=== PATIENT | male | born 1975 | race Caucasian/White ===

== ENCOUNTER 2016-03-18 19:32 | Emergency (ER) | payer MEDICAID ==
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
[2016-03-18 20:17] VITALS: BP 111/82; PULSE 78; RESP 16; TEMP 98.4; O2SAT 95
== END 2016-03-18 20:22 | disposition home or self-care (01) ==
LOC: EDUNIT#
PROC: 0HQ0XZZ Repair Scalp Skin, External Approach (ICD-10-PCS; principal; 2016-03-18)
DX: S01.01XA Laceration without foreign body of scalp, initial encounter (principal); F17.200 Nicotine dependence, unspecified, uncomplicated; W22.8XXA Striking against or struck by other objects, initial encounter

== ENCOUNTER 2016-03-29 10:11 | Emergency (ER) | payer MEDICAID ==
[~2016-03-29 10:11] MED LIST: ALBUTEROL 60 PUFFS/8 GM MDI IH SCH; AZITHROMYCIN 250 MG TAB PO SCH
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
[2016-03-29 12:24] VITALS: BP 128/78; PULSE 67; RESP 18; TEMP 97.7; O2SAT 95
[2016-03-30] MEDS ORDERED: AZITHROMYCIN 250 MG TAB PO SCH (09:00)
== END 2016-03-29 12:21 | disposition home or self-care (01) ==
DX: J20.9 Acute bronchitis, unspecified (principal); F17.200 Nicotine dependence, unspecified, uncomplicated

== ENCOUNTER 2017-05-17 21:53 | Emergency (ER) | payer MEDICAID, OTHER ==
--- NOTE | 2017-05-17 21:56 | EDPHY ---
H & P Time Seen by Provider: 05/17/17 21:55 HPI/ROS: HPI: This is a 42-year-old male who presents with Chief Complaint: Right wrist infection Location: Right wrist Quality: Infection Duration: 2 weeks Signs and Symptoms: No bleeding, no radiation, no numbness, no weakness, no tingling, no incontinence, no decreased range of motion, + swelling, +pain, no fever Timing: Not improving Severity: Moderate Context: Patient is right-hand dominant, former IV drug user, presents with police from detention with request for evaluation of his right wrist/lower arm abnormality that has not improved with 2 weeks of Bactrim. Detention nurse is concerned that patient may have compartment syndrome. Complains of right hand being cooler to touch than his left hand. Denies any trauma/injury. Denies fever. Mild redness noted. Denies LOC/head injury/neck pain/dizziness/nausea/ vomiting/amnesia. Patient hands are hard and cracked. Hands have no redness or swelling as compared to the left hand. Modifying Factors: Bactrim Comment: ROS: see HPI Constitutional: No fever, no chills, no weight loss Eyes: No blurred vision Respiratory: No shortness of breath, no cough Cardiovascular: No chest pain Gastrointestinal: No nausea, no vomiting no diarrhea Genitourinary: No dysuria Extremities: No myalgias Neurologic: No weakness, no numbness Skin: No rashes Hematologic: No bruising, no bleeding MEDICAL/SURGICAL/SOCIAL HISTORY: Medical history: Polysubstance abuse, bipolar disorder Surgical history: Ortho Social history: Homeless, currently incarcerated. CONSTITUTIONAL: Well-developed, well-nourished, adult middle-aged male, awake and alert, no obvious distress HEENT: Atraumatic and normocephalic. NECK: supple, no midline tenderness, flexion 45 degrees, extension 45 degrees, right and left lateral flexion 45 degrees. No meningismus. Cardiovascular: Normal S1/S2, regular rate, regular rhythm, without murmur rub or gallop. PULMONARY/CHEST: Symmetrical and nontender. no crepitus. Clear to auscultation bilaterally. Good air movement. No accessory muscle usage. ABDOMEN: Soft, nondistended, nontender, no ecchymosis. PELVIC: no pain with rocking; bilateral hips flexion 125 degrees, extension 30 degrees, with no pain internal rotation and no pain external rotation. BACK: No midline tenderness, no paraspinous spasm, deep tendon reflexes 2/2, no pain with straight leg raise, No foot drop. Achilles reflexes are equal bilaterally. Able to walk on heels and toes without difficulty. EXTREMITIES: 2/2 pulses, strength 5/5, right WRIST: Extension to 70, flexion to 80, radial deviation to 20 degree, ulnar deviation to 30, no scaphoid tenderness, no tenderness over ulnar styloid, no tenderness over radial styloid , no pain with Heather test, no pain with Phalen test, no pain with Tinel test mildly erythematous and warm right wrist and forearm; no streaking; mild swelling; right hand is slightly cool to touch compared to left hand. Strong radial pulses noted. DIP/PIP/MCP flexion/extension intact with good light touch sensation. no deformities, no clubbing, no cyanosis or edema. NEUROLOGICAL: no focal neuro deficits. GCS 15. Light touch sensation intact. SKIN: Warm and dry, no erythema. no rash. Good capillary refill. Source: Patient Exam Limitations: No limitations - Medical/Surgical History Hx Asthma: No Hx Chronic Respiratory Disease: No Hx Diabetes: No Hx Cardiac Disease: No Hx Renal Disease: No Hx Cirrhosis: No Hx Alcoholism: No Hx HIV/AIDS: No Hx Splenectomy or Spleen Trauma: No Other PMH: ortho surgeries. - Social History Smoking Status: Current every day smoker Constitutional: Initial Vital Signs Temperature (C) 36.7 C 05/17/17 21:57 Heart Rate 57 L 05/17/17 21:57 Respiratory Rate 18 05/17/17 21:57 Blood Pressure 170/109 H 05/17/17 21:57 O2 Sat (%) 97 05/17/17 21:57 O2 Delivery Mode Room Air Allergies/Adverse Reactions: No Known Allergies Allergy (Unverified 05/17/17 21:56) Home Medications: Medication Instructions Recorded Famotidine [Pepcid 20 MG (*)] 20 mg PO BID #10 tab 02/05/16 Gabapentin 02/05/16 Ondansetron Odt [Zofran Odt 4 mg 4 mg PO Q4PRN PRN #7 tab 02/05/16 (*)] Seroquel 02/05/16 Wellbutrin Sr 02/05/16 Albuterol [Proventil Inhaler HFA 1 - 2 puffs IH Q4PRN PRN #1 mdi 03/29/16 (*)] Azithromycin [Zithromax tab 250 mg] 250 mg PO DAILY #6 tab 03/29/16 Medical Decision Making - Diagnostics Imaging Results: Imaging Impressions Extremity Venous Study 05/17/17 22:03 Impression: No sonographic evidence of venous thrombosis in the right upper extremity. Dr. Sanchez discussed these findings by secure text message with PAC Arielalan Ray at 2056 hours on 05/17/2017. Wrist X-Ray 05/17/17 22:03 Impression: No acute osseous abnormalities. ED Course/Re-evaluation: Labs, right upper extremity ultrasound, right wrist x-ray ordered Vital signs stable upon arrival. 2300: Called by radiologist, Dr. Gladys nicole, who advised that right upper extremity ultrasound is negative for deep venous thrombosis. X-ray my read shows no signs of fracture/dislocation 2320: labs reviewed; grossly unremarkable including no leukocytosis/elevated ESR No signs of neurovascular compromise/tenting of skin/compartment syndrome/ extremities and joints examined above and below area of concern and are neurovascularly intact/gouty arthropathy. Suspect tendonitis; placed in Velcro wrist splint; RICE; orthopedics follow-up This patient was seen under the supervision of my secondary supervising physician. I evaluated care for this patient independently. Differential Diagnosis: Differential diagnosis includes but is not limited to compartment syndrome, tenosynovitis, cellulitis, wrist fracture, scaphoid fracture, nerve injury, vascular injury, DVT. - Data Points Laboratory Results: Laboratory Results 05/17/17 23:00 05/17/17 23:00 05/17/17 05/17/17 05/17/17 23:00 23:00 23:00 WBC 8.76 10^3/uL 10^3/uL (3.80-9.50) RBC 4.64 10^6/uL 10^6/uL (4.40-6.38) Hgb 15.5 g/dL g/dL (13.7-17.5) Hct 45.4 % % (40.0-51.0) MCV 97.8 fL fL (81.5-99.8) MCH 33.4 pg pg (27.9-34.1) MCHC 34.1 g/dL g/dL (32.4-36.7) RDW 12.7 % % (11.5-15.2) Plt Count 334 10^3/uL 10^3/uL (150-400) MPV 10.1 fL fL (8.7-11.7) Neut % (Auto) 54.0 % % (39.3-74.2) Lymph % (Auto) 32.0 % % (15.0-45.0) [place] % (Auto) 8.0 % % (4.5-13.0) Eos % (Auto) 4.7 % % (0.6-7.6) Baso % (Auto) 1.1 % % (0.3-1.7) Nucleat RBC Rel Count 0.0 % % (0.0-0.2) Absolute Neuts (auto) 4.73 10^3/uL 10^3/uL (1.70-6.50) Absolute Lymphs (auto) 2.80 10^3/uL 10^3/uL (1.00-3.00) Absolute Monos (auto) 0.70 10^3/uL 10^3/uL (0.30-0.80) Absolute Eos (auto) 0.41 10^3/uL H 10^3/uL (0.03-0.40) Absolute Basos (auto) 0.10 10^3/uL 10^3/uL (0.02-0.10) Absolute Nucleated RBC 0.00 10^3/uL 10^3/uL (0-0.01) Immature Gran % 0.2 % % (0.0-1.1) Immature Gran # 0.02 10^3/uL 10^3/uL (0.00-0.10) ESR 5 MM/HR MM/HR (0-15) VBG Lactic Acid 0.9 mmol/L mmol/L (0.7-2.1) Sodium 139 mEq/L mEq/L (135-145) Potassium 4.5 mEq/L mEq/L (3.5-5.2) Chloride 100 mEq/L mEq/L (97-110) Carbon Dioxide 28 mEq/l mEq/l (22-31) Anion Gap 11 mEq/L mEq/L (8-16) BUN 22 mg/dL mg/dL (7-23) Creatinine 0.9 mg/dL mg/dL (0.7-1.3) Estimated GFR > 60 Glucose 70 mg/dL mg/dL (70-100) Calcium 9.5 mg/dL mg/dL (8.5-10.4) Departure - Departure Disposition: Home, Routine, Self-Care Clinical Impression: Tendinitis of right forearm Condition: Good Instructions: Tendinitis (ED) Additional Instructions: Right upper extremity ultrasound shows no signs of deep venous thrombosis. Right forearm and wrist x-ray showed no signs of fracture/dislocation. Laboratory studies are unremarkable. Wear the velcro wrist splint continuously until pain free or until seen by orthopedics. Take Tylenol 650 mg every 4 hours and/or Ibuprofen 600 mg every 8 hours with food as needed for pain. Apply ice for 30 minutes at a time; 2-3 times per day for the next 1-2 days. Follow-up with Orthopedics if symptoms persist greater than 1-2 weeks for further evaluation. Medically Cleared See [facility] for follow-up instructions and prescriptions. Referrals: Erasmo Butler MD [Medical Doctor] - As per Instructions
[2017-05-17 23:09] LABS: PLATELET COUNT 334 10^3/uL (150-400)
[2017-05-17 23:44] VITALS: BP 151/91
== END 2017-05-17 23:46 | disposition home or self-care (01) ==
LOC: EEVIPCON 21:53
DX: M77.9 Enthesopathy, unspecified (principal); F17.200 Nicotine dependence, unspecified, uncomplicated
CPT/HCPCS: L3807

== ENCOUNTER 2018-03-22 18:57 | Emergency (ER) | payer MEDICAID, OTHER ==
[2018-03-22] MEDS ORDERED: CHLORDIAZEPOXIDE 25MG PREPK#6 BTL TAKEHOME ONE (19:13)
--- NOTE | 2018-03-22 19:13 | EDPHY ---
H & P Stated Complaint: Swelling in hands, "bone hurts" Time Seen by Provider: 03/22/18 19:09 - Personal History Current Tetanus Diphtheria and Acellular Pertussis (TDAP): No - Medical/Surgical History Hx Asthma: No Hx Chronic Respiratory Disease: No Hx Diabetes: No Hx Cardiac Disease: No Hx Renal Disease: No Hx Cirrhosis: No Hx Alcoholism: Yes Hx HIV/AIDS: No Hx Splenectomy or Spleen Trauma: No Other PMH: ortho surgeries, Hep C, ETOH abuse - Social History Smoking Status: Current every day smoker Constitutional: Initial Vital Signs Temperature (C) 36.5 C 03/22/18 19:03 Heart Rate 118 H 03/22/18 19:03 Respiratory Rate 19 03/22/18 19:03 Blood Pressure 133/85 H 03/22/18 19:03 O2 Sat (%) 92 03/22/18 19:03 O2 Delivery Mode Room Air Allergies/Adverse Reactions: No Known Allergies Allergy (Unverified 03/22/18 19:04) Home Medications: Medication Instructions Recorded Famotidine [Pepcid 20 MG (*)] 20 mg PO BID #10 tab 02/05/16 Gabapentin 02/05/16 Ondansetron Odt [Zofran Odt 4 mg 4 mg PO Q4PRN PRN #7 tab 02/05/16 (*)] Seroquel 02/05/16 Wellbutrin Sr 02/05/16 Albuterol [Proventil Inhaler HFA 1 - 2 puffs IH Q4PRN PRN #1 mdi 03/29/16 (*)] Azithromycin [Zithromax tab 250 mg] 250 mg PO DAILY #6 tab 03/29/16 Medical Decision Making - Diagnostics Imaging Results: Imaging Impressions Hand X-Ray 03/22/18 19:22 Impression: Soft tissue swelling with no acute osseous abnormality identified. Imaging: I viewed and interpreted images myself ED Course/Re-evaluation: CHIEF COMPLAINT: Wants to go to [facility], bilateral hand swelling HISTORY OF PRESENT ILLNESS: The patient is a homeless 42 y/o male with a history of alcohol abuse requesting Librium prescription and transfer to the [facility]. He also complains of bilateral hand swelling after cutting his left index finger on barbed wire. Pain is worse when making a fist. He denies weakness, paresthesias, fever, or other acute complaints. REVIEW OF SYSTEMS: A comprehensive 10 system review of systems is otherwise negative aside from elements mentioned in the history of present illness and medical decision making. PHYSICAL EXAM: HR, BP, O2 Sat, RR. Temp noted General Appearance: Alert, well hydrated, appropriate, and non-toxic appearing. Head: Atraumatic without scalp tenderness or obvious injury Eyes: Pupils equal, round, reactive to light and accommodation, EOMI, no trauma , no injection. Nose: Atraumatic, no rhinorrhea, clear. Throat: Mucus membranes moist. Neck: Supple, nontender, no lymphadenopathy. Respiratory: No retractions, no distress, no wheezes, and no accessory muscle use. Lungs are clear to auscultation bilaterally. Cardiovascular: Regular rate and rhythm, no murmurs, rubs, or gallops. Good capillary refill all extremities. Gastrointestinal: Abdomen is soft, nontender, non-distended, no masses, no rebound, no guarding, no peritoneal signs. Musculoskeletal: Normal active ROM of all extremities, bilateral hand swelling , small scab on left index finger, no Kanavel signs, otherwise atraumatic. Neurological: Alert, appropriate, and interactive. The patient has non-focal cranial nerves, motor, sensory, and cerebellar exam. Skin: No rashes, good turgor, no nodules on palpation. Past medical history: Alcoholism, hepatitis C Past surgical history: Ortho surgeries Family history: Noncontributory Social history: Homeless, alcohol abuse, daily smoker. DIAGNOSTICS/PROCEDURES/CRITICAL CARE TIME: Left hand x-ray: no fracture or foreign body. DIFFERENTIAL DIAGNOSIS: The differential diagnosis for the patient's symptoms included but was not limited to cellulitis, foreign body, contusion, cold injury , peripheral edema. MEDICAL DECISION MAKING: This is a homeless 42 y/o male who presents requesting transfer to the [facility] and evaluation of hand swelling. He has a small scab on his left index finger and bilateral hand swelling. No Kanavel signs and he does not appear systemically ill. Ruled out radio-opaque foreign body with left hand x-ray. Patient will be discharged to [facility] with Librium script. 100mg PO Doxycycline administered for possible cellulitis and script for doxy provided at discharge. - Data Points Medications Given: Discontinued Medications Doxycycline Hyclate (Doxycycline Hyclate) 100 mg PO EDNOW ONE PRN Reason: Protocol Stop: 03/22/18 19:28 Last Admin: 03/22/18 19:36 Dose: 100 mg Departure - Departure Disposition: Home, Routine, Self-Care Clinical Impression: Cellulitis Qualifiers: Site of cellulitis: extremity Site of cellulitis of extremity: finger Laterality: left Qualified Code(s): L03.012 - Cellulitis of left finger Alcohol intoxication Qualifiers: Complication of substance-induced condition: uncomplicated Qualified Code(s): F10.920 - Alcohol use, unspecified with intoxication, uncomplicated Condition: Good Instructions: Cellulitis (ED), Abuse of Alcohol (ED) Additional Instructions: 1. Take doxycycline as prescribed. Be sure to complete the entire prescription even if you feel better. 2. Go directly to the [facility] for detox. Take Librium as prescribed for detox symptoms. 3. Follow up with primary care provider in the next 2-3 days for reevaluation of your hand. 4. Return for worsening of condition. Referrals: [facility],. [Clinic] - As per Instructions Report Scribed for: Tom Trevizo Report Scribed by: Amanda Aguero Date of Report: 03/22/18 Time of Report: 19:19
[2018-03-22] MEDS ORDERED: DOXYCYCLINE HYCLATE 100 MG CAP/TAB PO ONE (19:27)
[2018-03-22] MEDS ORDERED: DOXYCYCLINE 100 MG PREPACK#2 BTL TAKEHOME ONE (19:27)
[2018-03-22 20:26] VITALS: BP 131/87
== END 2018-03-22 20:26 | disposition home or self-care (01) ==
DX: L03.012 Cellulitis of left finger (principal); M79.89 Other specified soft tissue disorders; F10.10 Alcohol abuse, uncomplicated; F17.200 Nicotine dependence, unspecified, uncomplicated; Z59.0 Homelessness

== ENCOUNTER 2018-03-28 21:31 | Emergency (ER) | payer MEDICAID ==
--- NOTE | 2018-03-28 22:20 | EDPHY ---
H & P Stated Complaint: Chest congestion, L side chest pain, Time Seen by Provider: 03/28/18 22:00 HPI/ROS: HPI The patient presents brought in by ambulance from the street for chest pain which he describes as left-sided, aching and dull, the pain has been constant for the last 1 week. It is associated with shortness of breath and sensation of claustrophobia. He also has a chronic dry cough. He does not recall any alleviating or exacerbating factors. He has not had this pain before. He has left hand infection which is being treated since in the ED visit from March 22 with doxycycline. He has a blister which has opened up on his finger. The pain continues. He has not had fevers. REVIEW OF SYSTEMS 10 systems were reviewed and negative with the exception of the elements mentioned in the history of present illness. PMHx: Hepatitis-C Soc Hx: Homeless, daily alcohol use, smokes 1 pack of cigarettes per day, occasional meth use, has been sleeping on the street PHYSICAL General Appearance: Disheveled, no acute distress Eyes: Pupils equal and round no pallor or injection ENT, Mouth: Mucous membranes moist Respiratory: There are no retractions, lungs are clear to auscultation Cardiovascular: Regular rate and rhythm Gastrointestinal: Abdomen is soft and non-tender, no masses, bowel sounds normal Neurological: A&O, moves all extremities Skin: Warm and dry, no rashes Musculoskeletal: Neck is supple non tender Extremities: Left index finger with 1 cm ruptured bullae which is slightly erythematous, no areas of fluctuance or tenderness, symmetrical, full range of motion Psychiatric: Patient is oriented X 3, there is no agitation Source: Patient, EMS, Old records Exam Limitations: No limitations - Personal History Current Tetanus Diphtheria and Acellular Pertussis (TDAP): Yes - Medical/Surgical History Hx Asthma: No Hx Chronic Respiratory Disease: No Hx Diabetes: No Hx Cardiac Disease: No Hx Renal Disease: No Hx Cirrhosis: No Hx Alcoholism: Yes Hx HIV/AIDS: No Hx Splenectomy or Spleen Trauma: No Other PMH: ortho surgeries, Hep C, ETOH abuse - Social History Smoking Status: Current every day smoker Constitutional: Initial Vital Signs Temperature (C) 36.5 C 03/28/18 21:35 Heart Rate 99 03/28/18 21:35 Respiratory Rate 18 03/28/18 21:35 Blood Pressure 116/81 H 03/28/18 21:35 O2 Sat (%) 93 03/28/18 21:35 O2 Delivery Mode Nasal Cannula O2 (L/minute) 2 Allergies/Adverse Reactions: No Known Allergies Allergy (Unverified 03/28/18 21:37) Home Medications: Medication Instructions Recorded Famotidine [Pepcid 20 MG (*)] 20 mg PO BID #10 tab 02/05/16 Gabapentin 02/05/16 Ondansetron Odt [Zofran Odt 4 mg 4 mg PO Q4PRN PRN #7 tab 02/05/16 (*)] Seroquel 02/05/16 Wellbutrin Sr 02/05/16 Albuterol [Proventil Inhaler HFA 1 - 2 puffs IH Q4PRN PRN #1 mdi 03/29/16 (*)] Azithromycin [Zithromax tab 250 mg] 250 mg PO DAILY #6 tab 03/29/16 Doxycycline Hyclate 100 mg PO BID #20 capsule 03/22/18 Medical Decision Making - Diagnostics EKG Interpretation: EKG: Complete interpretation has been separately recorded in the [facility] archive. Summary impression: Normal sinus rhythm, no ST segment change Imaging Results: Imaging Impressions Chest X-Ray 03/28/18 22:15 Impression: No acute abnormality. Imaging: I viewed and interpreted images myself Differential Diagnosis: This is a 42-year-old homeless male with hepatitis-C, recent finger infection on doxycycline who now presents brought in by ambulance from the street on this cold night with chest pain. This is associated with shortness of breath. Here , patient looks quite well, is mildly tachycardic though this could be related to alcohol withdrawal as he is a daily drinker. He is disheveled though has a nonfocal physical exam. Differential diagnosis includes ACS, alcoholic gastritis, bronchitis, pleurisy. In the emergency department, patient was placed on phototypesetting equipment monitor. He was given a dose of Librium for alcohol withdrawal as potential cause of his mild tachycardia. Heart rate normalized. Chest x-ray was unremarkable. EKG was normal. Basic labs revealed a mild transaminitis which I attribute either to his hepatitis C or chronic alcohol abuse. Blood alcohol level was elevated at 260. Patient fell asleep in the emergency department and rested comfortably for about 2 hr. I discussed that we did not uncover the cause of his chest pain here. However with constant chest pain for 1 week and negative troponin, I am not concerned for ACS. He will be discharged home. I have encouraged him to continue his antibiotics for his finger infection which does not appear to be flexor tenosynovitis, significance cellulitis or abscess. - Data Points Laboratory Results: Laboratory Results 03/28/18 22:55 03/28/18 22:55 03/28/18 03/28/18 03/28/18 23:01 22:55 22:55 WBC 8.08 10^3/uL 10^3/uL (3.80-9.50) RBC 4.35 10^6/uL L 10^6/uL (4.40-6.38) Hgb 14.8 g/dL g/dL (13.7-17.5) Hct 42.4 % % (40.0-51.0) MCV 97.5 fL fL (81.5-99.8) MCH 34.0 pg pg (27.9-34.1) MCHC 34.9 g/dL g/dL (32.4-36.7) RDW 13.3 % % (11.5-15.2) Plt Count 260 10^3/uL 10^3/uL (150-400) MPV 9.9 fL fL (8.7-11.7) Neut % (Auto) 53.8 % % (39.3-74.2) Lymph % (Auto) 29.3 % % (15.0-45.0) [place] % (Auto) 10.0 % % (4.5-13.0) Eos % (Auto) 5.8 % % (0.6-7.6) Baso % (Auto) 1.0 % % (0.3-1.7) Nucleat RBC Rel Count 0.0 % % (0.0-0.2) Absolute Neuts (auto) 4.34 10^3/uL 10^3/uL (1.70-6.50) Absolute Lymphs (auto) 2.37 10^3/uL 10^3/uL (1.00-3.00) Absolute Monos (auto) 0.81 10^3/uL H 10^3/uL (0.30-0.80) Absolute Eos (auto) 0.47 10^3/uL H 10^3/uL (0.03-0.40) Absolute Basos (auto) 0.08 10^3/uL 10^3/uL (0.02-0.10) Absolute Nucleated RBC 0.00 10^3/uL 10^3/uL (0-0.01) Immature Gran % 0.1 % % (0.0-1.1) Immature Gran # 0.01 10^3/uL 10^3/uL (0.00-0.10) Sodium 141 mEq/L mEq/L (135-145) Potassium 4.1 mEq/L mEq/L (3.5-5.2) Chloride 105 mEq/L mEq/L (97-110) Carbon Dioxide 27 mEq/l mEq/l (22-31) Anion Gap 9 mEq/L mEq/L (6-14) BUN 21 mg/dL mg/dL (7-23) Creatinine 0.9 mg/dL mg/dL (0.7-1.3) Estimated GFR > 60 Glucose 105 mg/dL H mg/dL (70-100) Calcium 9.0 mg/dL mg/dL (8.5-10.4) Total Bilirubin 0.4 mg/dL mg/dL (0.1-1.4) AST 100 IU/L H IU/L (17-59) ALT 77 IU/L H IU/L (21-72) Alkaline Phosphatase 98 IU/L IU/L (38-126) POC Troponin I 0.00 ng/mL ng/mL (0.00-0.08) Total Protein 7.2 g/dL g/dL (6.3-8.2) Albumin 4.4 g/dL g/dL (3.5-5.0) Ethyl Alcohol 260 mg/dL H mg/dL (0-10) Medications Given: Discontinued Medications Chlordiazepoxide HCl (Librium) 25 mg PO EDNOW ONE Stop: 03/28/18 22:25 Last Admin: 03/28/18 22:32 Dose: 25 mg Point of Care Test Results: Chemistry 03/28/18 23:01 POC Troponin I 0.00 ng/mL ng/mL (0.00-0.08) Departure - Departure Disposition: Home, Routine, Self-Care Clinical Impression: Homelessness Chest pain Qualifiers: Chest pain type: unspecified Qualified Code(s): R07.9 - Chest pain, unspecified Alcohol intoxication Qualifiers: Complication of substance-induced condition: with delirium Qualified Code(s): F10.921 - Alcohol use, unspecified with intoxication delirium Condition: Good Instructions: Chest Pain (ED), Alcohol Intoxication (ED) Additional Instructions: Please continue to take your antibiotic until it is finished. You can follow up at [facility] in the next few days for recheck. Return to the ER only if your worse in any way. Referrals: [facility],. [Clinic] - As per Instructions [facility],. [Clinic] - As per Instructions
[2018-03-28] MEDS ORDERED: chlordiazePOXIDE 25 MG CAP PO ONE (22:24)
[2018-03-28 23:07] LABS: PLATELET COUNT 260 10^3/uL (150-400)
[2018-03-29 00:15] VITALS: BP 108/78
--- NOTE | 2018-03-29 06:07 | CPEKG ---
Test Reason : OPEN Blood Pressure : / mmHG Vent. Rate : 101 BPM Atrial Rate : 101 BPM P-R Int : 131 ms QRS Dur : 092 ms QT Int : 364 ms P-R-T Axes : 061 012 054 degrees QTc Int : 472 ms Sinus tachycardia Probable left atrial enlargement Confirmed by Mariposa Esquivel ([id number]) on 03/29/2018 6:07:13 AM Referred By: Mariposa Esquivel Confirmed By:Mariposa Esquivel
== END 2018-03-29 00:15 | disposition home or self-care (01) ==
LOC: EDUNIT#
DX: R07.9 Chest pain, unspecified (principal); B19.20 Unspecified viral hepatitis C without hepatic coma; F10.129 Alcohol abuse with intoxication, unspecified; Y90.8 Blood alcohol level of 240 mg/100 ml or more; F17.200 Nicotine dependence, unspecified, uncomplicated; Z59.0 Homelessness
CPT/HCPCS: 84484-ER; G0480

== ENCOUNTER 2018-04-13 11:42 | Emergency (ER) | payer MEDICAID ==
[2018-04-13] MEDS ORDERED: CHLORDIAZEPOXIDE 25MG PREPK#6 BTL TAKEHOME ONE (11:48)
[2018-04-13] MEDS ORDERED: CEPHALEXIN 500 MG CAP PO ONE (11:48)
[2018-04-13 11:49] VITALS: BP 132/80
--- NOTE | 2018-04-13 11:55 | EDPHY ---
H & P Stated Complaint: l index finger infection Time Seen by Provider: 04/13/18 11:49 HPI/ROS: HPI: This is a 42-year-old male who presents with Chief Complaint: Left finger infection Location: Left finger Quality: Infection Duration: Several weeks Signs and Symptoms: No bleeding, no radiation, no numbness, no weakness, no tingling, no incontinence, no decreased range of motion, no swelling, + pain, no fever Timing: Chronic Severity: Mild Context: Patient is homeless, arrives via EMS, with complaints of left index finger infection. He admits to not taking the doxycycline as prescribed. He was seen in this emergency room on 03/28/2018 with similar complaints. He reports that he wants to go [facility] with Librium in order to "be able to take my medication." Denies fever, radiation, weakness, decreased range of motion. Patient complains that doxycycline makes him nauseous and he cannot take it while use drinking. He reports that he drinks vodka daily. On 03/28/2018 chart review shows that chest x-ray shows no acute abnormality, EKG showed normal sinus rhythm with no ST segment changes. Denies shortness of breath, chest pain, abdominal pain, nausea, vomiting to me. Modifying Factors: None Comment: ROS: A comprehensive 10 system review of systems is otherwise negative aside from elements mentioned in the history of present illness. MEDICAL/SURGICAL/SOCIAL HISTORY: Medical history: Alcoholism, hepatitis-C Surgical history: Denies Social history: Homeless. CONSTITUTIONAL: Intoxicated, middle-aged white male, cooperative, awake and alert, no obvious distress HEENT: Atraumatic and normocephalic. NECK: supple, no midline tenderness Cardiovascular: Normal S1/S2, regular rate, regular rhythm, without murmur rub or gallop. PULMONARY/CHEST: Symmetrical and nontender.Clear to auscultation bilaterally. Good air movement. No accessory muscle usage. ABDOMEN: Soft, nondistended, nontender. EXTREMITIES: 2/2 pulses, strength 5/5, left index finger shows 2 mm round dried area distal to the PIP joint; no erythema/fluctuance/warmth. Negative Kanavel sign. DIP/PIP/MCP flexion/extension intact with good light touch sensation. no deformities, no clubbing, no cyanosis or edema. NEUROLOGICAL: no focal neuro deficits. GCS 15. Light touch sensation intact. Slurred speech. SKIN: Warm and dry, no erythema. no rash. Good capillary refill. Source: Patient Exam Limitations: No limitations - Personal History Current Tetanus/Diphtheria Vaccine: Unsure - Medical/Surgical History Hx Asthma: No Hx Chronic Respiratory Disease: No Hx Diabetes: No Hx Cardiac Disease: No Hx Renal Disease: No Hx Cirrhosis: No Hx Alcoholism: Yes Hx HIV/AIDS: No Hx Splenectomy or Spleen Trauma: No Other PMH: ortho surgeries, Hep C, ETOH abuse - Social History Smoking Status: Current every day smoker Constitutional: Initial Vital Signs Temperature (C) 36.8 C 04/13/18 11:47 Heart Rate 76 04/13/18 11:47 Respiratory Rate 16 04/13/18 11:47 Blood Pressure 132/80 H 04/13/18 11:47 O2 Sat (%) 92 04/13/18 11:47 O2 Delivery Mode Room Air Allergies/Adverse Reactions: No Known Allergies Allergy (Unverified 03/28/18 21:37) Home Medications: Medication Instructions Recorded Famotidine [Pepcid 20 MG (*)] 20 mg PO BID #10 tab 02/05/16 Gabapentin 02/05/16 Ondansetron Odt [Zofran Odt 4 mg 4 mg PO Q4PRN PRN #7 tab 02/05/16 (*)] Seroquel 02/05/16 Wellbutrin Sr 02/05/16 Albuterol [Proventil Inhaler HFA 1 - 2 puffs IH Q4PRN PRN #1 mdi 03/29/16 (*)] Azithromycin [Zithromax tab 250 mg] 250 mg PO DAILY #6 tab 03/29/16 Doxycycline Hyclate 100 mg PO BID #20 capsule 03/22/18 Cephalexin [Keflex (*)] 500 mg PO TID #21 cap 04/13/18 Medical Decision Making ED Course/Re-evaluation: Vital signs reviewed and stable upon arrival. Tetanus is up-to-date per patient. Finger cleaned with soap and water, bacitracin and tube gauze applied Given Keflex and prescription for same No signs of neurovascular compromise/tenting of skin/compartment syndrome/ extremities and joints examined above and below area of concern and are neurovascularly intact/tenosynovitis/abscess/cellulitis. Patient will be discharged to the [facility] with Librium prepack. No current signs of delirium tremens/alcohol withdrawal seizures. This patient was seen under the supervision of my secondary supervising physician. I evaluated care for this patient independently. Discussed this patient with Dr. Espinosa who did not see the patient. Differential Diagnosis: Differential diagnosis includes but is not limited to tenosynovitis, abscess, cellulitis. - Data Points Medications Given: Discontinued Medications Cephalexin HCl (Keflex) 500 mg PO EDNOW ONE PRN Reason: Protocol Stop: 04/13/18 11:49 Last Admin: 04/13/18 12:11 Dose: 500 mg Chlordiazepoxide (Librium 25 Mg Prepack#6) 1 btl TAKEHOME EDNOW ONE Stop: 04/13/18 11:49 Last Admin: 04/13/18 12:35 Dose: 1 btl Departure - Departure Disposition: Home, Routine, Self-Care Clinical Impression: Induration of skin, Alcoholic intoxication without complication Abrasion of finger, left, infected Qualifiers: Encounter type: initial encounter Qualified Code(s): S60.419A - Abrasion of unspecified finger, initial encounter Condition: Good Instructions: Cellulitis (ED), Abrasion (ED) Additional Instructions: Keep the dressing dry and in place for 48 hours. After 48 hours, you may remove the dressing; wash the site daily with mild soap and water; then pat dry. Take Tylenol 650 mg every 4 hours and/or Ibuprofen 600 mg every 8 hours with food as needed for pain. Take antibiotic as directed. Do not skip a dose. Follow-up with [facility] [address] and re-establish primary care there. You are medically cleared to be discharged to the [facility]. Take Librium as directed for alcohol withdrawal symptoms. Referrals: [facility],. [Clinic] - As per Instructions [facility] Hours [Outside] - As per Instructions Prescriptions: Cephalexin [Keflex (*)] 500 mg PO TID #21 cap
--- NOTE | 2018-04-13 16:39 | ASMTCMCOM ---
CM Note CM Note Notes: Pt presented to the ED vis EMS for ETOH abuse, SOB, and concerns re: an infection to his left index finger. Spoke w/pt and he states he would like to go to detox. Pt is homeless and states he completed [employer] Entry and was referred to the [facility]; but pt states he was recently barred from [facility] for 60 days due to "drinking." Pt states he is aware of the [facility] but does not like staying there so he prefers to sleep outside. CM strongly encouraged pt to consider staying at [facility] when it is offered. Pt states he is from [place] and has family (including a 12 yr old daughter) who still live there. Pt states he was sober for 7 years while raising his daughter in [place] but started drinking again a couple of years ago. CM provided pt w/various OP/IOP substance abuse resources, a [facility] pamphlet, [facility] info (pt states he has not been seen there for about 2 years), and other community resource info. Pt discharged to [facility] detox via cab and w/a pre-pack of Librium. Pt provided a written Rx for Keflex and instructed to follow-up w/[facility]. Pt calm, cooperative and appreciative of assistance. Date Signed: 04/13/2018 04:39 PM Electronically Signed By:Ricarda Wagoner RN
== END 2018-04-13 12:35 | disposition home or self-care (01) ==
LOC: EDUNIT#
DX: L08.9 Local infection of the skin and subcutaneous tissue, unspecified (principal); S60.411A Abrasion of left index finger, initial encounter; F10.920 Alcohol use, unspecified with intoxication, uncomplicated; Z59.0 Homelessness

== ENCOUNTER 2018-05-01 19:29 | Observation (INO) | payer MEDICAID ==
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
[2018-05-01 20:00] LABS: PLATELET COUNT 216 10^3/uL (150-400)
[2018-05-01] MEDS ORDERED: AZITHROMYCIN 250 MG TAB PO ONE (20:14)
[2018-05-01] MEDS ORDERED: CHLORDIAZEPOXIDE 25MG PREPK#6 BTL TAKEHOME ONE (20:51)
[2018-05-01] MEDS ORDERED: IOPAMIDOL (ISOVUE 370) 100 ML BTL IV ONE (21:05)
[2018-05-01] MEDS ORDERED: ACETAMINOPHEN 325 MG TAB PO PRN (22:30)
[2018-05-01] MEDS ORDERED: ONDANSETRON 4 MG/2 ML VIAL IVP PRN (22:30)
[2018-05-01] MEDS ORDERED: ALBUTEROL 3 ML DEYVIAL IH PRN (22:30)
[2018-05-01] MEDS ORDERED: ONDANSETRON DISINTEGRATING 4 MG TAB PO PRN (22:30)
[2018-05-01] MEDS ORDERED: LORazepam 2 MG/ML INJ IVP PRN (22:33)
[2018-05-01] MEDS ORDERED: FLUMAZENIL 0.5 MG/5 ML MDV IVP PRN (22:33)
--- NOTE | 2018-05-01 23:04 | PDGENHP ---
History and Physical - Chief Complaint Seizure - History of Present Illness 43 yo M w/ BPD and ETOH use d/o brought to ED by EMS due to witnessed seizure at a laundry facility. Per report the patient has a history of ETOH use d/o and ETOH w/d seizures. During a period of observation in the ED he was noted to be persistently hypoxic. Evaluation has otherwise been negative. He is sedated during my evaluation and unable to contribute to history. He is requiring 2 L/ min O2 during my evaluation to maintain O2 sats. He is being admitted for observation. Case discussed with ED PA Jayro Pena; records reviewed and summarized above. History Information - Allergies/Home Medication List Allergies/Adverse Reactions: No Known Allergies Allergy (Unverified 05/01/18 19:31) Home Medications: Gabapentin 02/05/16 [Last Taken Unknown] Seroquel 02/05/16 [Last Taken Unknown] Wellbutrin Sr 02/05/16 [Last Taken Unknown] I have personally reviewed and updated: family history, medical history - Past Medical History Additional medical history: Bipolar d/o - Family History Additional family history: Unable to obtain 2/2 sedation - Social History Smoking Status: Current every day smoker Alcohol Use: Heavy Review of Systems Review of Systems: ROS: 10pt was reviewed & negative except for what was stated in HPI & below Physical Exam Physical Exam: Temp Pulse Resp BP Pulse Ox 36.6 C 66 14 131/86 H 94 05/01/18 19:31 05/01/18 20:50 05/01/18 20:50 05/01/18 20:50 05/01/18 20:50 Constitutional: unkempt, other (Sedated) Eyes: PERRL, anicteric sclera Ears, Nose, Mouth, Throat: moist mucous membranes, no oral mucosal ulcers Cardiovascular: regular rate and rhythym, no murmur, rub, or gallop Respiratory: no respiratory distress, clear to auscultation Gastrointestinal: normoactive bowel sounds, soft, non-tender abdomen Skin: warm, normal color Musculoskeletal: no muscle tenderness, no joint effusions Neurologic: other (Sedated), No facial droop Psychiatric: other (Sedated) Lab Data & Imaging Review 05/01/18 19:50 05/01/18 19:50 WBC 6.22 10^3/uL (3.80-9.50) 05/01/18 19:50 RBC 4.39 10^6/uL (4.40-6.38) L 05/01/18 19:50 Hgb 15.2 g/dL (13.7-17.5) 05/01/18 19:50 Hct 43.4 % (40.0-51.0) 05/01/18 19:50 MCV 98.9 fL (81.5-99.8) 05/01/18 19:50 MCH 34.6 pg (27.9-34.1) H 05/01/18 19:50 MCHC 35.0 g/dL (32.4-36.7) 05/01/18 19:50 RDW 13.9 % (11.5-15.2) 05/01/18 19:50 Plt Count 216 10^3/uL (150-400) 05/01/18 19:50 MPV 9.8 fL (8.7-11.7) 05/01/18 19:50 Neut % (Auto) 51.9 % (39.3-74.2) 05/01/18 19:50 Lymph % (Auto) 32.6 % (15.0-45.0) 05/01/18 19:50 [place] % (Auto) 9.0 % (4.5-13.0) 05/01/18 19:50 Eos % (Auto) 5.0 % (0.6-7.6) 05/01/18 19:50 Baso % (Auto) 1.3 % (0.3-1.7) 05/01/18 19:50 Nucleat RBC Rel Count 0.0 % (0.0-0.2) 05/01/18 19:50 Absolute Neuts (auto) 3.23 10^3/uL (1.70-6.50) 05/01/18 19:50 Absolute Lymphs (auto) 2.03 10^3/uL (1.00-3.00) 05/01/18 19:50 Absolute Monos (auto) 0.56 10^3/uL (0.30-0.80) 05/01/18 19:50 Absolute Eos (auto) 0.31 10^3/uL (0.03-0.40) 05/01/18 19:50 Absolute Basos (auto) 0.08 10^3/uL (0.02-0.10) 05/01/18 19:50 Absolute Nucleated RBC 0.00 10^3/uL (0-0.01) 05/01/18 19:50 Immature Gran % 0.2 % (0.0-1.1) 05/01/18 19:50 Immature Gran # 0.01 10^3/uL (0.00-0.10) 05/01/18 19:50 Sodium 147 mEq/L (135-145) H 05/01/18 19:50 Potassium 4.2 mEq/L (3.5-5.2) 05/01/18 19:50 Chloride 106 mEq/L (97-110) 05/01/18 19:50 Carbon Dioxide 27 mEq/l (22-31) 05/01/18 19:50 Anion Gap 14 mEq/L (6-14) 05/01/18 19:50 BUN 15 mg/dL (7-23) 05/01/18 19:50 Creatinine 0.8 mg/dL (0.7-1.3) 05/01/18 19:50 Estimated GFR > 60 05/01/18 19:50 Glucose 99 mg/dL (70-100) 05/01/18 19:50 Calcium 9.0 mg/dL (8.5-10.4) 05/01/18 19:50 POC Troponin I 0.00 ng/mL (0.00-0.08) 05/01/18 19:58 Ethyl Alcohol 379 mg/dL (0-10) H 05/01/18 19:50 Imaging Review: Imaging Impressions Chest X-Ray 05/01/18 19:38 Impression: Nothing acute identified. Chest/Thorax CTA 05/01/18 21:02 Impression: 1. No evidence for pulmonary embolic disease. 2. Fluid in the esophagus suggests gastroesophageal reflux. Results discussed with NAHUM Munoz. at 22:09 PM General information for patients regarding this examination can be found at [email or web address]. If you have questions or comments about this report, please contact me at (hospital) or [phone] (cell). Head CT 05/01/18 21:09 Impression: 1. Premature cerebral atrophy consistent with EtOH abuse. 2. Nothing acute identified. Results called to NAHUM Munoz at 10:15 PM General information for patients regarding this examination can be found at [email or web address]. If you have questions or comments about this report, please contact me at (hospital) or [phone] (cell). Assessment & Plan Assessment: 43 yo M w/ BPD and ETOH use d/o presents with suspected ETOH w/d seizure and hypoxia. Plan: 1. ETOH use d/o w/ suspected withdrawal seizure - Brought in by EMS after witnessed seizure at a laundry facility. No further seizure activity while here. CTH (personally reviewed/interpreted) without acute findings. - Admit for observation - CIWA protocol ordered - Daily MVI, folate, thiamine 2. Hypoxia - Suspect due to sedation and intoxication. This is currently mild, only requiring 2 L/min O2. CXR and CTA unremarkable. - O2 PRN to maintain O2 sats>89% - Incentive spirometry ordered 3. Urethritis - Likely STI; given CTX and Azithro X1 in ED. 4. BPD - Continue home medications pending reconciliation Diet - Regular Code - Full Ppx - LMWH Dispo - Admit under observation status
[2018-05-02 07:32] VITALS: BP 139/85
[2018-05-02] MEDS ORDERED: ENOXAPARIN 40 MG/0.4 ML SYR SC SCH (09:00)
[2018-05-02] MEDS ORDERED: FOLIC ACID 1 MG TAB PO SCH (09:00)
[2018-05-02] MEDS ORDERED: THIAMINE HCL 100 MG TAB PO SCH (09:00)
[2018-05-02] MEDS ORDERED: MULTIVITAMINS 1 EACH TAB PO SCH (09:00)
--- NOTE | 2018-05-02 09:32 | HOSPPROG ---
Hospitalist Progress Note Assessment/Plan: 43 yo M w/ BPD and ETOH use d/o presents with suspected ETOH w/d seizure and hypoxia. First encounter, chart reviewed. *alcohol induced seizure -has a hx of this -place him on gabapentin *alcohol use -CIWA protocol *hypoxia -reviewed CTA-no PE -chest xray shows nothing acute *urethritis -likely from STI *BPD (borderline personality disorder) *plan: dc today, will ask CM to give him a bus pass and to set up an appt at [facility] for f/u care, script for gabapentin will be given to help w seizures, but suspect he will start drinking today. Subjective: Tian is concerned why his hands are swollen. Objective: Vital Signs Temp Pulse Resp BP Pulse Ox 36.6 C 76 19 139/85 H 95 05/02/18 07:31 05/02/18 07:31 05/02/18 07:31 05/02/18 07:31 05/02/18 07:31 05/01/18 05/02/18 05/03/18 05:59 05:59 05:59 Intake Total 1850 Output Total 600 Balance 1250 - Physical Exam Constitutional: chronically ill appearing, unkempt Eyes: PERRL Ears, Nose, Mouth, Throat: hearing normal Cardiovascular: regular rate and rhythym, No tachycardia Respiratory: no respiratory distress, other (loose cough) Skin: warm, other (hands w swelling) Musculoskeletal: generalized weakness Neurologic: AAOx3 Psychiatric: interacting appropriately, No anxious ICD10 Worksheet Patient Problems: Problems Problem Status Onset Alcohol withdrawal seizure Acute Hypoxemia Acute Urethral discharge in male Acute
[2018-05-02] MEDS ORDERED: GABAPENTIN 100 MG CAP PO SCH ×2 (09:49→16:00)
[2018-05-02 11:20] LABS: GC AMPLIFICATION GENPROBE NEGATIVE (NEGATIVE)
--- NOTE | 2018-05-02 12:20 | ASMTCMCOM ---
CM Note CM Note Notes: Pts case discussed w/ Renee Hernandez NP. Pt is a 43 y/o man admitted for alcohol abuse and hypoxemia. CM met w/ pt and provided him w/ an appointment to [facility] for a post hospitalization follow up. Pt declined a detention bed reservation. Pt declinded CAGE and etoh resources. No other needs at this time. CM available for changes. Plan: Independent Please follow up with: [facility] [address] [place] [id number] NAHUM Lantigua 05/03/18 at 3:20PM Please bring photo ID, insurance card, co-pay, list of all meds and d/c paperwork. Date Signed: 05/02/2018 12:20 PM Electronically Signed By:GENOVEVA Orozco
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
== END 2018-05-02 12:59 | disposition home or self-care (01) ==
LOC: EDUNIT# → EDBD → F3N 05-02 00:14
PROVIDERS: ADMIT Student in an Organized Health Care Education/Training Program; ATTEND Family Medicine
DX: R09.02 Hypoxemia (principal); F10.239 Alcohol dependence with withdrawal, unspecified; F10.229 Alcohol dependence with intoxication, unspecified; Y90.8 Blood alcohol level of 240 mg/100 ml or more; R56.9 Unspecified convulsions; N34.2 Other urethritis; F60.3 Borderline personality disorder; F17.210 Nicotine dependence, cigarettes, uncomplicated; Z59.0 Homelessness; Z86.19 Personal history of other infectious and parasitic diseases
CPT/HCPCS: 70450; 71046; 71275; G0378; 84484-ER; G0480; J0696; J2060; Q9967